=== PATIENT | female | born 1965 | race Caucasian/White ===

== ENCOUNTER → 2024-05-02 15:13 | Outpatient (REF) | payer OTHER, SELFPAY | LOC: HWRCS 15:13 | PROVIDERS: ATTENDING PHYSICIAN Nurse Practitioner Adult Health | DX: I35.9 Nonrheumatic aortic valve disorder, unspecified (principal); R00.2 Palpitations | CPT/HCPCS: 93306 ==

== ENCOUNTER 2024-12-02 06:22 | Day surgery (SDC) | payer OTHER, SELFPAY | END 2024-12-02 09:58 | disposition home or self-care (01) | LOC: GI 06:22 | PROVIDERS: ATTENDING PHYSICIAN Internal Medicine Gastroenterology | DX: Z12.11 Encounter for screening for malignant neoplasm of colon (principal); D12.0 Benign neoplasm of cecum; K57.30 Diverticulosis of large intestine without perforation or abscess without bleeding; K64.8 Other hemorrhoids; K64.4 Residual hemorrhoidal skin tags; Z86.0100 Personal history of colon polyps, unspecified; Z83.719 Family history of colon polyps, unspecified | CPT/HCPCS: 45380; 88305 ==

== ENCOUNTER → 2025-01-10 15:18 | Outpatient (REF) | payer OTHER, SELFPAY | LOC: HWWDC 15:18 | PROVIDERS: ATTENDING PHYSICIAN Nurse Practitioner Adult Health; REFERRING PHYSICIAN Obstetrics & Gynecology | DX: Z12.31 Encounter for screening mammogram for malignant neoplasm of breast (principal) | CPT/HCPCS: 77063; 77067 ==